=== PATIENT | female | born 2000 | race Hispanic/Latino ===

== ENCOUNTER 2023-10-04 00:33 | Emergency (ER) | payer BC, OTHER ==
[~2023-10-04] VITALS: Ht 167.6 cm; Wt 122.5 kg
[2023-10-04 00:40] VITALS: BP 134/73; PULSE 65; RESP 18; O2SAT 100
[2023-10-04] MEDS ORDERED: IBUPROFEN 600 MG TABLET PO ONE (03:30)
== END 2023-10-04 04:18 | disposition home or self-care (01) ==
LOC: EDH 00:33
DX: S93.401A Sprain of unspecified ligament of right ankle, initial encounter (principal); E03.9 Hypothyroidism, unspecified; X50.1XXA Overexertion from prolonged static or awkward postures, initial encounter; Y93.89 Activity, other specified; Y92.89 Other specified places as the place of occurrence of the external cause; Y99.8 Other external cause status
CPT/HCPCS: 29515; 73610